=== PATIENT | female | born 1945 | race Caucasian/White ===

== ENCOUNTER 2022-10-06 11:57 | Emergency (ER) | payer MEDICARE ==
[~2022-10-06] VITALS: Ht 160 cm; Wt 64.4 kg
[2022-10-06 12:09] VITALS: BP 133/66
== END 2022-10-06 13:38 | disposition home or self-care (01) ==
LOC: EDH 11:57
DX: S80.02XA Contusion of left knee, initial encounter (principal); M25.561 Pain in right knee; E78.00 Pure hypercholesterolemia, unspecified; Z90.710 Acquired absence of both cervix and uterus; Z90.49 Acquired absence of other specified parts of digestive tract; Z98.890 Other specified postprocedural states; W01.0XXA Fall on same level from slipping, tripping and stumbling without subsequent striking against object, initial encounter; Y93.01 Activity, walking, marching and hiking; Y92.238 Other place in hospital as the place of occurrence of the external cause; Y99.8 Other external cause status

== ENCOUNTER 2022-10-23 20:44 | Inpatient (IN) | payer MEDICARE ==
[~2022-10-23] VITALS: Ht 160 cm; Wt 63.0 kg
[2022-10-23 21:22] LABS: APPEARANCE,URINE CLEAR (CLEAR); BILIRUBIN,URINE 0.5 mg/dL (NEGATIVE); COLOR,URINE YELLOW (YELLOW); GLUCOSE, URINE (UA) NEGATIVE (NEGATIVE); KETONES,URINE 40 mg/dL (NEGATIVE); LEUKOCYTE ESTERASE ,URINE 500 Leu/uL (NEGATIVE); NITRATE,URINE NEGATIVE (NEGATIVE); OCCULT BLOOD,URINE LARGE (NEGATIVE); PROTEIN,URINE 50 mg/dL (NEGATIVE)
[2022-10-23 21:28] LABS: BACTERIA,URINE FEW /HPF (None Seen); MUCUS,URINE FEW LPF (None Seen); RBC,URINE 26-50 /HPF (0-1); SQUAMOUS EPITHELIAL CELL,UR RARE /HPF (0-2); WBC,URINE 26-50 /HPF (0-1); YEAST,URINE BUDDING FEW /HPF (None Seen)
[2022-10-23 21:34] LABS: BASOPHILS % (AUTO) 0.2 % (0.0-5.0); EOSINOPHILS % (AUTO) 0.1 % (0.0-8.0); HEMATOCRIT 44.3 % (36-48); LYMPHOCYTES % (AUTO) 10.6 % (21.0-51.0); MEAN CORPUSCULAR HEMOGLOBIN 27.1 pg (27.0-33.0); MEAN CORPUSCULAR HGB CONC 33.4 g/dL (32.0-36.0); MONOCYTES % (AUTO) 6.9 % (3.0-13.0); NEUTROPHILS % (AUTO) 81.8 % (40.0-77.0); PLATELET COUNT (AUTO) 265 K/uL (130-400); RED BLOOD CELL COUNT(AUTO) 5.47 MIL/uL (4.00-5.50); RED CELL DISTRIBUTION WIDTH 13.2 % (11.0-15.5); WHITE BLOOD COUNT (AUTO) 17.3 K/uL (4.8-10.8)
[2022-10-23 22:01] LABS: ALBUMIN 3.3 g/dL (3.5-5.0); CREATININE 0.8 mg/dL (0.5-1.5); TOTAL PROTEIN, SERUM 7.4 g/dL (6.0-8.3)
[2022-10-23] MEDS ORDERED: KCL 20 MEQ ERTAB PO ONE (22:30)
[2022-10-23] MEDS ORDERED: CEFTRIAXONE 1G VIAL IVP ONE (22:30)
[2022-10-23] MEDS ORDERED: ONDANSETRON 4MG INJ ONE (22:47)
[2022-10-23] MEDS ORDERED: IOHEXOL 350 MG/ML 100ML INFUS..BTL IV ONE (23:01)
[2022-10-23] MEDS ORDERED: POTASSIUM CHLORIDE 10MEQ/100ML 100 ML IV SCH (23:30)
[2022-10-24] VITALS (25 sets, daily range): BP systolic 118–185; BP diastolic 40–87
[2022-10-24] MEDS ORDERED: NITROGLYCERIN 0.4 MG SL TAB SL PRN (00:30)
[2022-10-24] MEDS ORDERED: GUAIFENESIN-DM 200/20 MG 10 ML PO PRN (00:30)
[2022-10-24] MEDS ORDERED: POTASSIUM CHLORIDE 10MEQ/100ML 100 ML IV PRN (00:30)
[2022-10-24] MEDS ORDERED: MORPHINE 4 MG SYG IV PRN (00:30)
[2022-10-24] MEDS ORDERED: ACETAMINOPHEN 325 MG TAB PO PRN (00:30)
[2022-10-24] MEDS ORDERED: MAG/ALUM/SIMETH 30 ML UDCUP PO PRN (00:30)
[2022-10-24] MEDS ORDERED: MORPHINE 2 MG SYG IV PRN (00:30)
[2022-10-24] MEDS ORDERED: CEFTRIAXONE 1G VIAL IV SCH (00:30)
[2022-10-24] MEDS ORDERED: LIDOCAINE HCL-MPF 1% 2ML VIAL IV PRN ×2 (00:30→07:00)
[2022-10-24] MEDS ORDERED: ONDANSETRON 4MG INJ IV PRN (00:30)
[2022-10-24] MEDS ORDERED: LACTULOSE 20 GM/30 ML UDCUP PO PRN (00:30)
[2022-10-24] MEDS: 0.9%NACL 1000ML 1,000 ML IV SCH ×2 (00:50→10:22)
[2022-10-24] MEDS ORDERED: MAGNESIUM 2GM PREMIX 50ML 50 ML IV PRN (07:00)
[2022-10-24 07:05] LABS: BASOPHILS % (AUTO) 0.1 % (0.0-5.0); EOSINOPHILS % (AUTO) 0.2 % (0.0-8.0); HEMATOCRIT 42.8 % (36-48); LYMPHOCYTES % (AUTO) 11.8 % (21.0-51.0); MEAN CORPUSCULAR HEMOGLOBIN 26.7 pg (27.0-33.0); MEAN CORPUSCULAR HGB CONC 32.7 g/dL (32.0-36.0); MEAN CORPUSCULAR VOLUME 81.5 fL (79-99); NEUTROPHILS % (AUTO) 76.5 % (40.0-77.0); PLATELET COUNT (AUTO) 243 K/uL (130-400); RED BLOOD CELL COUNT(AUTO) 5.25 MIL/uL (4.00-5.50); RED CELL DISTRIBUTION WIDTH 13.5 % (11.0-15.5); WHITE BLOOD COUNT (AUTO) 14.9 K/uL (4.8-10.8)
[2022-10-24 07:19] LABS: CREATININE 0.7 mg/dL (0.5-1.5); POTASSIUM 3.7 mmol/L (3.5-5.1)
[2022-10-24 07:26] LABS: HEMOGLOBIN A1C 5.9 % (4.0-6.0)
[2022-10-24] MEDS: CEFTRIAXONE 2GM VIAL IVPB SCH (07:31)
[2022-10-24] MEDS: FAMOTIDINE 20MG VIAL IV SCH ×2 (09:00→21:41)
[2022-10-24] MEDS ORDERED: BUPIVACAINE/PF 0.5% 10ML VIAL ONE (09:34)
[2022-10-24] MEDS ORDERED: CEFAZOLIN SODIUM 1 GM VIAL ONE (09:39)
[2022-10-24] MEDS ORDERED: LACTATED RINGERS 1000ML 1,000 ML IV ONE (09:49)
[2022-10-24] MEDS ORDERED: ROCURONIUM 10MG/1ML SYR 10 MG/ML ML ONE (10:18)
[2022-10-24] MEDS ORDERED: LIDOCAINE PF 100MG/5ML (2%) SYRINGE 5ML ONE (10:18)
[2022-10-24] MEDS ORDERED: SUCCINYLCHOLINE CHLORIDE 20 MG/ML 10 ML VIAL ONE (10:18)
[2022-10-24] MEDS ORDERED: PROPOFOL 10 MG/ML 20ML VIAL IV ONE (10:18)
[2022-10-24] MEDS ORDERED: FENTANYL CITRATE PF 50 MCG/1 ML 2ML VIAL ONE (10:33)
[2022-10-24] MEDS ORDERED: NEOSTIGMINE 5MG/5ML SYR IV ONE (10:42)
[2022-10-24] MEDS ORDERED: GLYCOPYRROLATE 1 MG/5 ML SYRINGE ONE (10:42)
[2022-10-24] MEDS ORDERED: HYDROMORPHONE 1 MG INJ ONE (11:18)
[2022-10-24] MEDS: LACTATED RINGERS 1000ML 1,000 ML IV SCH (14:52)
[2022-10-24] MEDS ORDERED: ACETAMINOPHEN WITH CODEINE 1 TAB TAB PO PRN (15:00)
[2022-10-24] MEDS ORDERED: OMEP20TA20 PO (18:34)
[2022-10-24] MEDS ORDERED: SIMV-43 PO (18:34)
[2022-10-24] MEDS ORDERED: VENL37.570 PO (18:34)
[2022-10-25] MEDS: LACTATED RINGERS 1000ML 1,000 ML IV SCH ×3 (00:02→19:34)
[2022-10-25 04:11] VITALS: BP 132/66
[2022-10-25 05:32] LABS: BASOPHILS % (AUTO) 0.2 % (0.0-5.0); HEMATOCRIT 37.8 % (36-48); LYMPHOCYTES % (AUTO) 14.4 % (21.0-51.0); MEAN CORPUSCULAR HEMOGLOBIN 26.9 pg (27.0-33.0); MEAN CORPUSCULAR VOLUME 84.2 fL (79-99); MONOCYTES % (AUTO) 7.7 % (3.0-13.0); NEUTROPHILS % (AUTO) 77.3 % (40.0-77.0); PLATELET COUNT (AUTO) 190 K/uL (130-400); RED BLOOD CELL COUNT(AUTO) 4.49 MIL/uL (4.00-5.50); RED CELL DISTRIBUTION WIDTH 13.6 % (11.0-15.5); WHITE BLOOD COUNT (AUTO) 11.1 K/uL (4.8-10.8)
[2022-10-25 05:49] LABS: ALBUMIN 2.2 g/dL (3.5-5.0); BILIRUBIN,DIRECT 0.2 mg/dL (0.0-0.3); CREATININE 0.7 mg/dL (0.5-1.5); CRP QUANTITATIVE 145.5 mg/L (0.00-9.0); MAGNESIUM 1.8 mg/dL (1.80-2.40); POTASSIUM 3.6 mmol/L (3.5-5.1); TOTAL PROTEIN, SERUM 5.6 g/dL (6.0-8.3)
[2022-10-25 06:05] LABS: B-TYPE NATRIURETIC PEPTIDE 37 pg/mL (0-100)
[2022-10-25] MEDS: CEFTRIAXONE 2GM VIAL IVPB SCH (06:36)
[2022-10-25 06:53] LABS: ERYTHROCYTE SEDIMENTATION RATE 34 MM/HR (0-30)
[2022-10-25] MEDS ORDERED: KCL 20 MEQ ERTAB PO PRN (07:00)
[2022-10-25] MEDS ORDERED: POTASSIUM CHLORIDE 10% ELIXIR 20 MEQ/15 ML UDCUP PO PRN (07:00)
[2022-10-25 07:10] VITALS: BP 127/69
[2022-10-25] MEDS: FAMOTIDINE 20MG VIAL IV SCH ×2 (09:56→19:38)
[2022-10-25 11:10] VITALS: BP 139/67
[2022-10-25] MEDS ORDERED: 0.9%NACL 50ML IV SCH (13:00)
[2022-10-25] MEDS: ZOSYN 3.375GM +NS 50ML IVPB SCH ×2 (13:05→21:16)
[2022-10-25 15:10] VITALS: BP 129/69
[2022-10-25 19:00] VITALS: BP 115/64
[2022-10-25 23:53] VITALS: BP 103/64
[2022-10-26] MEDS: ZOSYN 3.375GM +NS 50ML IVPB SCH ×3 (04:25→20:48)
[2022-10-26 04:33] VITALS: BP 133/72
[2022-10-26] MEDS: LACTATED RINGERS 1000ML 1,000 ML IV SCH (05:43)
[2022-10-26 05:48] LABS: BASOPHILS % (AUTO) 0.3 % (0.0-5.0); EOSINOPHILS % (AUTO) 2.3 % (0.0-8.0); HEMATOCRIT 33.3 % (36-48); MEAN CORPUSCULAR HGB CONC 32.1 g/dL (32.0-36.0); MEAN CORPUSCULAR VOLUME 84.1 fL (79-99); MONOCYTES % (AUTO) 9.4 % (3.0-13.0); NEUTROPHILS % (AUTO) 76.5 % (40.0-77.0); PLATELET COUNT (AUTO) 173 K/uL (130-400); RED BLOOD CELL COUNT(AUTO) 3.96 MIL/uL (4.00-5.50); RED CELL DISTRIBUTION WIDTH 13.5 % (11.0-15.5); WHITE BLOOD COUNT (AUTO) 11.7 K/uL (4.8-10.8)
[2022-10-26 06:01] LABS: CREATININE 0.6 mg/dL (0.5-1.5)
[2022-10-26 06:07] LABS: POTASSIUM 2.9 mmol/L (3.5-5.1)
[2022-10-26] MEDS: POTASSIUM CHLORIDE 20MEQ/100ML 100 ML IV PRN ×2 (06:23→08:28)
[2022-10-26] MEDS ORDERED: POTASSIUM CHLORIDE 10% ELIXIR 20 MEQ/15 ML UDCUP PO PRN (07:00)
[2022-10-26] MEDS ORDERED: LIDOCAINE HCL-MPF 1% 2ML VIAL IV PRN (07:00)
[2022-10-26] MEDS ORDERED: POTASSIUM CHLORIDE 20MEQ/100ML 100 ML IV PRN (07:00)
[2022-10-26 07:10] VITALS: BP 118/71
[2022-10-26 07:22] LABS: ALBUMIN 1.8 g/dL (3.5-5.0); BILIRUBIN,DIRECT 0.2 mg/dL (0.0-0.3); MAGNESIUM 1.9 mg/dL (1.80-2.40); TOTAL PROTEIN, SERUM 5.1 g/dL (6.0-8.3)
[2022-10-26 07:37] LABS: CRP QUANTITATIVE 187.6 mg/L (0.00-9.0)
[2022-10-26] MEDS: FAMOTIDINE 20MG VIAL IV SCH ×2 (08:27→20:48)
[2022-10-26 11:10] VITALS: BP 117/72
[2022-10-26] MEDS ORDERED: ENOXAPARIN SODIUM 40 MG/0.4 ML SYRINGE SQ SCH (12:00)
[2022-10-26 15:10] VITALS: BP 127/75
[2022-10-26 20:00] VITALS: BP 130/58
[2022-10-26] MEDS: ENOXAPARIN SODIUM 30 MG/0.3 ML SQ SCH (20:48)
[2022-10-26] MEDS: DOCUSATE SODIUM 100 MG CAP PO SCH (20:48)
[2022-10-26] MEDS ORDERED: SIMVASTATIN 20 MG TABLET PO SCH (21:00)
[2022-10-27] VITALS: BP 100/67
[2022-10-27 04:00] VITALS: BP 152/83
[2022-10-27] MEDS: ZOSYN 3.375GM +NS 50ML IVPB SCH ×2 (05:13→13:36)
[2022-10-27 05:40] LABS: BASOPHILS % (AUTO) 0.4 % (0.0-5.0); EOSINOPHILS % (AUTO) 7.2 % (0.0-8.0); LYMPHOCYTES % (AUTO) 12.6 % (21.0-51.0); MEAN CORPUSCULAR HEMOGLOBIN 26.8 pg (27.0-33.0); MEAN CORPUSCULAR HGB CONC 31.6 g/dL (32.0-36.0); MEAN CORPUSCULAR VOLUME 84.9 fL (79-99); MONOCYTES % (AUTO) 8.2 % (3.0-13.0); NEUTROPHILS % (AUTO) 71.1 % (40.0-77.0); PLATELET COUNT (AUTO) 199 K/uL (130-400); RED BLOOD CELL COUNT(AUTO) 3.77 MIL/uL (4.00-5.50); RED CELL DISTRIBUTION WIDTH 13.5 % (11.0-15.5); WHITE BLOOD COUNT (AUTO) 10.3 K/uL (4.8-10.8)
[2022-10-27 06:04] LABS: ALBUMIN 1.8 g/dL (3.5-5.0); CREATININE 0.6 mg/dL (0.5-1.5); POTASSIUM 3.2 mmol/L (3.5-5.1); TOTAL PROTEIN, SERUM 5.3 g/dL (6.0-8.3)
[2022-10-27 08:00] VITALS: BP 128/71
[2022-10-27] MEDS: ENOXAPARIN SODIUM 30 MG/0.3 ML SQ SCH (08:47)
[2022-10-27] MEDS: DOCUSATE SODIUM 100 MG CAP PO SCH (08:47)
[2022-10-27] MEDS: FAMOTIDINE 20MG VIAL IV SCH (08:47)
[2022-10-27] MEDS: KCL 20 MEQ ERTAB PO PRN ×3 (08:48→15:10)
[2022-10-27] MEDS ORDERED: VENLAFAXINE HCL XR 37.5 MG CAP PO SCH (09:00)
[2022-10-27 12:00] VITALS: BP 102/52
[2022-10-27] MEDS ORDERED: IOHEXOL-350 50ML VIAL IV ONE (13:06)
== END 2022-10-27 18:00 | disposition home or self-care (01) | DRG 853 ==
LOC: EDH 20:44 → EDHIP 10-24 00:16 → 3CH 10-24 01:20
PROVIDERS: ADMIT Hospitalist; ATTEND Hospitalist
PROC: 0DB80ZZ Excision of Small Intestine, Open Approach (ICD-10-PCS; 2022-10-24)
PROC: 0YQ80ZZ Repair Left Femoral Region, Open Approach (ICD-10-PCS; principal; 2022-10-24 10:16)
DX: A41.50 Gram-negative sepsis, unspecified (principal); K55.069 Acute infarction of intestine, part and extent unspecified; K55.30 Necrotizing enterocolitis, unspecified; K40.30 Unilateral inguinal hernia, with obstruction, without gangrene, not specified as recurrent; N39.0 Urinary tract infection, site not specified; K41.30 Unilateral femoral hernia, with obstruction, without gangrene, not specified as recurrent; Z20.822 Contact with and (suspected) exposure to COVID-19; K21.9 Gastro-esophageal reflux disease without esophagitis; R53.81 Other malaise; E78.00 Pure hypercholesterolemia, unspecified; E86.0 Dehydration; E87.6 Hypokalemia; Z85.038 Personal history of other malignant neoplasm of large intestine; Z90.710 Acquired absence of both cervix and uterus
CPT/HCPCS: 36415; 71045; 71270; 74177; 80048; 80053; 80076; 81001; 82150; 82550; 83036; 83605; 83690; 83735; 83880; 84132; 84145; 84484; 85025; 85651; 86140; 87040; 87088; 87635; 87804; 93005; C9803; G0378; J0330; J0690; J0696; J1170; J1650; J2001; J2270; J2405; J2543; J2704; J2710; J3010; J3480; J3490; J7030; J7120; Q9967

== ENCOUNTER 2024-10-21 17:13 | Emergency (ER) | payer MEDICARE ==
[~2024-10-21] VITALS: Ht 160 cm; Wt 68.0 kg
[~2024-10-21 17:13] MED LIST: OMEP20TA20 PO; SIMV-43 PO; VENL37.57 PO
[2024-10-21 17:17] VITALS: BP 141/85; TEMP 100.8
--- NOTE | 2024-10-21 17:47 | EKG ---
[facility] Test Date: 2024-10-21 Test Time: 17:44:25 Pat Name: ROSE WASHINGTON Department: ED Room: Gender: F Professor Of Practice: 0802 : 1945 Requested By: SHANA MCCRAY Order Number: [id number] Reading MD: Clay Reyna Measurements Intervals [place] Rate: 83 P: 86 ID: [id number] QRS: 27 QRSD: 100 T: 176 QT: 346 QTc: 406 Interpretive Statements Sinus rhythm Abnormal T, consider ischemia, lateral leads Compared to ECG 10/24/2022 09:46:50 T-wave abnormality now present Possible ischemia now present Electronically Signed On 10-22-2024 17:16:00 DIRECTOR [employer]CH[employer] by Clay Reyna Please click the below link to view image of tracing.
--- NOTE | 2024-10-21 17:53 | HMCIMG ---
CHEST 1VW HISTORY: Cough COMPARISON: None FINDINGS: A frontal projection of the chest was obtained. No acute pulmonary infiltrates is seen. The heart is normal in size. Degenerative changes are seen. Prominent interstitial markings are seen. Aortic calcifications are seen. IMPRESSION: 1. No acute pulmonary infiltrate is seen. Prominent interstitial markings are seen.
[2024-10-21 18:31] LABS: BASOPHILS # (AUTO) 0.05 K/uL (0.00-0.20); BASOPHILS % (AUTO) 0.9 % (0.0-5.0); EOSINOPHILS # (AUTO) 0.05 K/uL (0.00-0.70); EOSINOPHILS % (AUTO) 0.9 % (0.0-8.0); HEMATOCRIT 44.1 % (36-48); IMMATURE GRANULOCYTE ABSOLUTE 0.02 K/uL (0-1); LYMPHOCYTES # (AUTO) 1.2 K/uL (1.0-4.8); LYMPHOCYTES % (AUTO) 21.7 % (21.0-51.0); MEAN CORPUSCULAR HEMOGLOBIN 25.4 pg (27.0-33.0); MEAN CORPUSCULAR HGB CONC 31.5 g/dL (32.0-36.0); MEAN CORPUSCULAR VOLUME 80.5 fL (79-99); MONOCYTES # (AUTO) 0.8 K/uL (0.1-1.0); MONOCYTES % (AUTO) 14.4 % (3.0-13.0); NEUTROPHILS # (AUTO) 3.4 K/uL (1.8-7.7); NEUTROPHILS % (AUTO) 61.7 % (40.0-77.0); PLATELET COUNT (AUTO) 221 K/uL (130-400); RED BLOOD CELL COUNT(AUTO) 5.48 MIL/uL (4.00-5.50); RED CELL DISTRIBUTION WIDTH 15.7 % (11.0-15.5); WHITE BLOOD COUNT (AUTO) 5.5 K/uL (4.8-10.8)
[2024-10-21 18:40] LABS: CREATININE 0.8 mg/dL (0.5-1.0); POTASSIUM 3.5 mmol/L (3.5-5.1)
[2024-10-21] MEDS ORDERED: ketOROlac 15MG/ML VIAL (15MG/ML) IV ONE (19:00)
[2024-10-21 19:01] LABS: B-TYPE NATRIURETIC PEPTIDE 64 pg/mL (0-100)
[2024-10-21 19:43] LABS: SARS-CoV-2, RNA, NAAT NEGATIVE SARS CoV-2 (NEGATIVE)
[2024-10-21 19:49] LABS: INFLUENZA TYPE A Negative For Type A (NEGATIVE); INFLUENZA TYPE B Negative For Type B (NEGATIVE)
[2024-10-21] MEDS: ketOROlac 15MG/ML VIAL (15MG/ML) IM ONE (19:55)
[2024-10-21] MEDS: acetaMINOPHEN 325 MG TAB PO ONE (19:55)
[2024-10-21] MEDS: Solu-medROL 125MG VIAL IVP ONE (20:30)
[2024-10-21 20:55] VITALS: PULSE 59; RESP 18; TEMP 98.7
--- NOTE | 2024-10-21 21:00 | ERN ---
General Chief Complaint: Cough Stated Complaint: FEVER,MULTIPLE COMPLAINTS Time Seen by MD: 19:07 Time Seen by Midlevel: 19:07 Source: patient History of Present Illness Initial Comments Patient is a 79-year-old female with a past medical history of hypertension and atrial fibrillation on Eliquis presenting to the emergency department with a cough that has been ongoing for the last week. Today she reports developing a low-grade fever so she decided to come in for further evaluation. Denies any sick contacts. Denies any other symptoms at this time. She does report being a previous smoker but has not smoked in several months. Allergies: Coded Allergies: levofloxacin (Unverified Allergy, Unknown, 10/06/22) Home Meds Reported Medications Venlafaxine HCl (Effexor Xr) 37.5 Mg Cap.er.24h, 75 MG PO DAILY, CAPSULE.DR 10/24/22 Omeprazole (Omeprazole) 20 Mg Tablet.dr, 20 MG PO DAILY, TAB 10/24/22 Simvastatin (Simvastatin) 20 Mg Tablet, 20 MG PO DAILY, TAB 10/24/22 Past Medical History Past Medical History: High Cholesterol, Migraines, Other Medical History Other: ACID REFLEX. ANEURISM Past Surgical History: Hysterectomy, Cholecystectomy Surgical History Other: COLON RESETION (2007), COIL/STENT IN HEAD Social History Social History: Negative ROS Dictation CONSTITUTIONAL: Negative except for HPI HEAD/FACE: Negative except for HPI EENT: Negative except for HPI RESPIRATORY: Negative except for HPI GASTROINTESTINAL/ABDOMINAL: Negative except for HPI GENITOURINARY: Negative except for HPI MUSCULOSKELETAL: Negative except for HPI INTEGUMENTARY: Negative except for HPI NEUROLOGICAL/PSYCH: Negative except for HPI HEMATOLOGIC/LYMPHATIC: Negative except for HPI All Systems Negative, Except as noted above. 13 point review of systems assessed and all negative except for above. Results Laboratory and Microbiology Lab and Micro Result Laboratory Tests Test 10/21/24 18:15 10/21/24 18:54 White Blood Count 5.5 K/uL (4.8-10.8) Red Blood Count 5.48 MIL/uL (4.00-5.50) Hemoglobin 13.9 g/dL (12.0-16.0) Hematocrit 44.1 % (36-48) Mean Corpuscular Volume 80.5 fL (79-99) Mean Corpuscular Hemoglobin 25.4 pg (27.0-33.0) L Mean Corpuscular Hemoglobin Concent 31.5 g/dL (32.0-36.0) L Red Cell Distribution Width 15.7 % (11.0-15.5) H Platelet Count 221 K/uL (130-400) Mean Platelet Volume 10.5 fL (7.5-10.5) Immature Granulocyte % (Auto) 0.4 % (0-1) Neutrophils (%) (Auto) 61.7 % (40.0-77.0) Lymphocytes (%) (Auto) 21.7 % (21.0-51.0) Monocytes (%) (Auto) 14.4 % (3.0-13.0) H Eosinophils (%) (Auto) 0.9 % (0.0-8.0) Basophils (%) (Auto) 0.9 % (0.0-5.0) Neutrophils # (Auto) 3.4 K/uL (1.8-7.7) Lymphocytes # (Auto) 1.2 K/uL (1.0-4.8) Monocytes # (Auto) 0.8 K/uL (0.1-1.0) Eosinophils # (Auto) 0.05 K/uL (0.00-0.70) Basophils # (Auto) 0.05 K/uL (0.00-0.20) Absolute Immature Granulocyte (auto 0.02 K/uL (0-1) Nucleated Red Blood Cells 0.0 % (0.0-0.19) Sodium Level 138 mmol/L (136-145) Potassium Level 3.5 mmol/L (3.5-5.1) Chloride Level 101 mmol/L (101-111) Carbon Dioxide Level 32 mmol/L (21-32) Blood Urea Nitrogen 7 mg/dL (7-18) Creatinine 0.8 mg/dL (0.5-1.0) Glomerular Filtration Rate Calc 76 mL/min (>90) Random Glucose 101 mg/dL (70-105) Total Calcium 9.3 mg/dL (8.5-10.1) Total Creatine Kinase 51 U/L (21-232) # Troponin I High Sensitivity 29.0 ng/L (4-50) B-Type Natriuretic Peptide 64 pg/mL (0-100) Influenza Type A Antigen Negative For Type A Influenza Type B Antigen Negative For Type B SARS-CoV-2, RNA, NAAT NEGATIVE SARS CoV-2 Labs Reviewed?: Yes MDM MDM: Differential diagnosis: Pneumonia, acute bronchitis, viral illness There are no social concerns with this patient. Prescription drug management Prescriptions will include: Azithromycin and Medrol pack Medical management and examination interpretation discussions were had by me with other qualified healthcare professionals as indicated for the patient's care. ED Course Orders Procedure Category Date Status Time Covid Rna Naat LAB 10/21/24 Complete 17:20 Influenza Type A & B, LAB 10/21/24 Complete Rapid 17:20 Chest 1vw RAD 10/21/24 Resulted 17:20 Cbc With Differential LAB 10/21/24 Complete 17:36 B-Type Natriuretic LAB 10/21/24 Complete Peptide 17:36 Cardiac Panel LAB 10/21/24 Complete 17:36 12 Lead Ekg Tracing- EKG 10/21/24 Complete Technical 17:36 Basic Metabolic Panel LAB 10/21/24 Complete 17:36 Ketorolac PHA 10/21/24 Complete Tromethamine 15mg/Ml 19:00 Acetaminophen 325 Tab PHA 10/21/24 Complete (Tylenol 325mg Tab 19:00 Ketorolac PHA 10/21/24 Complete Tromethamine 15mg/Ml 20:00 Ipratropium/Albuterol PHA 10/21/24 Complete Neb (Duoneb) 20:30 Methylprednisolone PHA 10/21/24 Complete Succ 125mg (Solu-Medr 20:30 Current Medications Medications (Trade) Dose Ordered Sig/Pipe Route PRN Reason Start Time Stop Time Status Last Admin Dose Admin Acetaminophen (TYLenol 325MG TAB) 650 mg ONCE ONCE PO 10/21/24 19:00 10/21/24 19:01 DC 10/21/24 19:55 Albuterol (DUOneb) 1 UDVIAL ONCE ONCE IH 10/21/24 20:30 10/21/24 20:31 DC Ketorolac Tromethamine (toRADol) 15 mg ONCE ONCE IM 10/21/24 20:00 10/21/24 20:01 DC 10/21/24 19:55 Ketorolac Tromethamine (toRADol) 15 mg ONCE ONCE IV 10/21/24 19:00 10/21/24 19:46 DC Methylprednisolone Sodium Succinate (Solu-medROL 125MG) 80 mg ONCE ONCE IVP 10/21/24 20:30 10/21/24 20:31 DC 10/21/24 20:30 Vital Signs Date Time Temp Pulse Resp B/P (MAP) Pulse Ox O2 Delivery O2 Flow Rate FiO2 10/21/24 19:55 100.8 10/21/24 17:17 100.8 90 18 141/85 96 Room Air 0 DX & DISP Disposition: Discharge Decision to Admit Date: Oct 21, 2024 Departure Impression: Primary Impression: Acute bronchitis Condition: Stable Scripts Methylprednisolone (Medrol) 4 Mg Tab.ds.pk 1 TAB PO AD for 6 Days, #21 TAB 0 Refills 6 on day 1 then reduce by one tablet daily until gone Prov: CEDRIC PARKER 10/21/24 Azithromycin (Azithromycin) 250 Mg Tablet 1 TAB PO AD for 5 Days, #6 TAB 0 Refills 2 the first day followed by 1 for days 2-5 Prov: CEDRIC PARKER 10/21/24 Additional Instructions: Your blood work today is stable. Your chest x-ray does not show any evidence of pneumonia. You tested negative for influenza a, influenza B, and COVID-19. I have given you a prescription for azithromycin and a Medrol pack which should improve your symptoms over the next couple of days. Follow up with your primary care doctor in 2-3 days for repeat evaluation. Return to the ER for any new or worsening symptoms Referrals: MARINA GRAHAM MD (PCP) I have reviewed the case, and I agree with, Diagnosis and Plan I performed the substantive portion of the visit. I have reviewed and personally made and approve the management plan that is documented in the note by myself or the LEIGH. I acknowledge for responsibility for the patient's management plan. CEDRIC PARKER Oct 21, 2024 21:00
[2024-10-21] MEDS ORDERED: METH4TAB3 PO (21:17)
[2024-10-21] MEDS ORDERED: AZIT250T9 PO (21:17)
[2024-10-21] MEDS: IpraTROPium/alBUTERol SULFATE 3 ML SOLUTION IH ONE (21:33)
== END 2024-10-21 21:42 | disposition home or self-care (01) ==
LOC: EDH 17:13
DX: J20.9 Acute bronchitis, unspecified (principal); E78.00 Pure hypercholesterolemia, unspecified; I10 Essential (primary) hypertension; I48.91 Unspecified atrial fibrillation; Z79.01 Long term (current) use of anticoagulants; Z79.899 Other long term (current) drug therapy; Z87.891 Personal history of nicotine dependence; Z88.1 Allergy status to other antibiotic agents; Z90.49 Acquired absence of other specified parts of digestive tract; Z90.710 Acquired absence of both cervix and uterus; Z20.822 Contact with and (suspected) exposure to COVID-19
CPT/HCPCS: 99285; 96374; 71045; 87635; 82550; 84484; 80048; 83880; 85025; 87804 ×2; 36415; 93005; 94640; 96372; J1885; J2919